=== PATIENT | male | born 1960 | race Caucasian/White ===

== ENCOUNTER → 2016-12-21 | Outpatient (CLI) | payer OTHER ==
--- NOTE | 2016-12-21 10:53 | XR ---
EXAMINATION TYPE: XR chest 2V DATE OF EXAM: 12/21/2016 8:33 AM HISTORY: R05 cough. REFERENCE: Previous study dated 11/24/2009. FINDINGS: The lungs are clear. Pleural spaces are clear. Heart size is upper limits of normal in size . IMPRESSION: NO ACUTE INTRATHORACIC ABNORMALITY.
--- NOTE | 2016-12-21 10:54 | XR ---
EXAMINATION TYPE: XR cervical spine comp DATE OF EXAM ORDERED: 12/21/2016 8:33 AM HISTORY: M54.2 cervicalgia. COMPARISON: None. FINDINGS: Vertebral body height and alignment are normal. Atlantoaxial relationships are normal. There is minimal hypertrophic spondylosis at C3-4 and C4-5. There is mild intervertebral foraminal na rrowing on the left at C3-4 and C4-5. There is mild uncovertebral joint disease at C4-5 and C5-6. IMPRESSION: 1. NO ACUTE OSSEOUS ABNORMALITY. 2. MILD DEGENERATIVE CHANGE. 3. MULTILEVEL INTERVERTEBRAL FORAMINAL NARROWING.
== END | disposition home or self-care (01) ==
LOC: RADXRMAIN 08:12
PROVIDERS: ATTEND Internal Medicine
DX: M99.71 Connective tissue and disc stenosis of intervertebral foramina of cervical region (principal); M47.812 Spondylosis without myelopathy or radiculopathy, cervical region; R05 Cough
CPT/HCPCS: 71020; 72050

== ENCOUNTER → 2017-02-21 | Outpatient (CLI) | payer OTHER ==
--- NOTE | 2017-02-21 20:23 | CONS ---
DATE OF CONSULTATION: 02/21/2017 This patient is a 57-year-old gentleman who has been seen in the sleep center for obstructive sleep apnea-hypopnea syndrome. HISTORY OF PRESENT ILLNESS/SLEEP-WAKE EVALUATION: Patient was diagnosed with severe obstructive sleep apnea-hypopnea syndrome in 2009. At that time apnea-hypopnea index was 62.4 with oxygen desaturation to 70.4%. The patient was treated with CPAP, tried on BiPAP, and also tried on Servo ventilator. He had difficulties tolerating the Servo ventilator at that time. He continues to use his treatment at the present time, but his CPAP unit has some problems; humidifier does not work. His sleep schedule is from 10:30 p.m. to 5 a.m. on working days, and from 11 to 7 on weekends. No problem with falling asleep. No TV in bedroom. He usually sleeps on the side position and wakes up from sleep 2 times with nocturia. Opdyke Sleepiness Scale is 7. The patient's weight has changed since his last titration, from 277 pounds down to 243 pounds. I checked patient's CPAP unit. Patient was able to use it only 12 out of 30 nights for more than 4 hours. CPAP pressure is 8 cm of water. The machine does not have information about apnea-hypopnea index. Past medical history is positive for: 1. Hypertension. 2. Hyperlipidemia. 3. Coronary artery disease. PAST SURGICAL HISTORY: 1. Three stent insertions. 2. Hernia repair. 3. History of polyps in the colon. 4. History of retinal detachment. MEDICATIONS: 1. Metoprolol. 2. Atorvastatin. 3. Enalapril. 4. Hydrochlorothiazide. 5. Nitrostat. SOCIAL HISTORY: Negative for smoking. Alcohol consumption rarely. FAMILY HISTORY: Hypertension, angina, heart problems, hyperlipidemia, arthritis, sleep apnea, snoring, diabetes. REVIEW OF SYSTEMS: Awakenings from sleep, sometimes while using his machine. No recent episodes of chest pain. No fevers. No double vision. No recent chest pain. No shortness of breath. No abdominal pain. No bleeding episodes. No blood in urine. No seizure episodes. PHYSICAL EXAMINATION: Patient in no distress. VITAL SIGNS: BP 156/69, HR 85, RR 16. Height 5 feet 7-1/2 inches. Weight 243. BMI 37.6. Neck 20 inches in circumference. Temperature 98.2. Oxygen saturation at room air 97%. HEENT: PERRLA, EOMI. Evaluation of oropharynx showed tongue protrudes midline; extremely low position of soft palate. NECK: Supple. No JVD. Thyroid is not palpable. LUNGS: Clear to percussion and to auscultation. Good air exchange. No wheezing or rhonchi. HEART: S1, S2 regular. No murmurs, gallops or rubs. ABDOMEN: Obese. EXTREMITIES: No clubbing or cyanosis. VENEREAL DISEASE INVESTIGATOR: Awake, alert, and oriented x3. Cranial nerves 2 to 7 intact. There is no fasciculation or atrophy noted. No focal deficits observed. IMPRESSION: 1. Severe obstructive sleep apnea-hypopnea syndrome. Patient continues to use his CPAP equipment; has some problems with equipment; lost weight of 34 pounds since previous titration. 2. Hypertension. 3. Obesity. 4. Hyperlipidemia. 5. Coronary artery disease, status post 3 stent insertions. 6. Status post hernia repair. PLAN: 1. Repeat CPAP titration for re-evaluation of effective CPAP pressure at the present time. Patient's weight has changed. 2. Losing weight. 3. Sleep hygiene with regular time in bed for at least 8 hours. 4. No driving if feeling any sleepiness. Thank you very much for allowing me to participate in the management of your patient. Sincerely, Alexander Dan MD, PhD, FAASM. Diplomat of [place] [employer], Sleep Medicine Board by [place] [employer], [place] [employer]
== END | disposition home or self-care (01) ==
LOC: SLEEP 13:16
PROVIDERS: ATTEND Internal Medicine
DX: G47.33 Obstructive sleep apnea (adult) (pediatric) (principal); I10 Essential (primary) hypertension; E78.5 Hyperlipidemia, unspecified; I25.10 Atherosclerotic heart disease of native coronary artery without angina pectoris; Z95.5 Presence of coronary angioplasty implant and graft; Z79.899 Other long term (current) drug therapy; E66.9 Obesity, unspecified; Z68.37 Body mass index [BMI] 37.0-37.9, adult

== ENCOUNTER → 2017-05-09 | Outpatient (CLI) | payer OTHER ==
--- NOTE | 2017-05-09 20:45 | PN ---
DATE OF SERVICE: 05/09/2017 This patient is a 57-year-old gentleman who has been followed in the sleep center for treatment of obstructive sleep apnea/hypopnea syndrome. Recently he had a CPAP titration and he came for follow-up visit today with his CPAP unit. He is able to use his CPAP equipment every night without significant problems, except he has some irritation in his nose secondary to the nasal pillows. I checked his CPAP unit. CPAP pressure is 12 cm of water. Patient is using it about 70% of the time more than 4 hours. Average usage is 4.7 hours. Leak is borderline at 32 L/minute, but apnea/hypopnea index is in the full normal range ; only 0.8 for the last month. MEDICATIONS: 1. Metoprolol. 2. Atorvastatin. 3. Enalapril. 4. Hydrochlorothiazide. 5. Nitrostat. 6. Aspirin. During physical exam, patient is a pleasant 57-year-old gentleman in no distress. VITAL SIGNS: BP 118/73, HR 94, RR 16. Weight 242. Temperature 98.2. Oxygen saturation at room air 97%. HEENT: PERRLA. EOMI. Evaluation of oropharynx showed tongue protrudes midline; low position of soft palate. NECK: Supple. No JVD. Thyroid is not palpable. LUNGS: Clear to percussion and to auscultation. Good air exchange. No wheezing or rhonchi. HEART: S1, S2 regular. No murmurs, gallops or rubs. ABDOMEN: Obese. EXTREMITIES: No clubbing or cyanosis. FORGE HAND: Awake, alert and oriented x3. Cranial nerves 2 through 7 are intact. There is no fasciculation or atrophy noted. No focal deficits observed. IMPRESSION: 1. Obstructive sleep apnea/hypopnea syndrome, controlled with CPAP at 12 cm of water. Patient demonstrated good compliance with treatment, benefitting from treatment. 2. Obesity. 3. Hypertension. 4. Hyperlipidemia. 5. Coronary artery disease, status post recent stent insertion. PLAN: 1. Continue treatment with CPAP every night for the whole night with the same level of pressure. 2. We could try a different size of nasal pillows. 3. Patient should use AYR gel to the nostrils with the nasal pillows to prevent any irritation. 4. Losing weight. 5. No driving if feeling any sleepiness. 6. Sleep hygiene with regular time in bed for at least 8 hours. Thank you very much for allowing me to participate in the management of your patient. Sincerely, Alexander Dan. , PhD, FAASM. Diplomat of [place] [employer], Sleep Medicine Board by [place] [employer] [place] [employer] Manager [employer] [facility] [place] Preferable position during sleep on the side. LAVERN
== END | disposition home or self-care (01) ==
LOC: SLEEP 14:41
PROVIDERS: ATTEND Internal Medicine
DX: G47.33 Obstructive sleep apnea (adult) (pediatric) (principal); E66.9 Obesity, unspecified; I10 Essential (primary) hypertension; E78.5 Hyperlipidemia, unspecified; Z79.899 Other long term (current) drug therapy; Z79.82 Long term (current) use of aspirin

== ENCOUNTER → 2018-01-14 | Outpatient (CLI) | payer OTHER ==
--- NOTE | 2018-01-14 16:50 | CONS ---
CONSULTATION REASON FOR CONSULTATION: Sleep apnea. This is a 57-year-old male patient with known history of obstructive sleep apnea who has been followed up by Dr. Dan. I am seeing this patient for the first time for further advice regarding his CPAP machine and pressure adjustments and mask interface. The patient is having difficulties with his CPAP treatment, which is set at a pressure of 12 cm of water. He has a ResMed AutoSet unit and the pressure is fixed at 12. He has no RAMP time. He has the humidity and the climate control in automatic mode. The patient has been having an excessive amount of leak and his compliancy numbers and data have gone down. He has become more symptomatic, and he is coming in for further advice. He goes to bed around 10:30 p.m., wakes up at 5 a.m. in the morning. He is still waking up tired and sleepy during the day, especially on days when he does not use his CPAP machine. He has lost around 10 pounds since his last evaluation and CPAP titration back in 2017. PAST MEDICAL HISTORY: 1. Obstructive sleep apnea. 2. Coronary artery disease with previous coronary stenting. 3. Hypertension. 4. Hyperlipidemia. PAST SURGICAL HISTORY: Cardiac catheterization with stenting and hernia repair. DRUG ALLERGIES: NOT KNOWN. OUTPATIENT MEDICATION LIST: 1. Lisinopril 10 mg 2 tablets a day. 2. Lipitor 40 mg p.o. daily. 3. Hydrochlorothiazide 25 mg p.o. daily. 4. Metoprolol 50 mg p.o. daily. 5. Aspirin 81 mg p.o. daily. SOCIAL HISTORY: The patient is an ex-smoker. No history of alcoholism. No history of IV drugs. FAMILY HISTORY: Noncontributory. Negative for sleep apnea. REVIEW OF SYSTEMS: Twelve-point review of systems was done. No history of insomnia. No choking or gasping sensation in the middle of the night. He has some nocturia. No grinding of the teeth. No sleepwalking. No anxiety or panic attacks. No palpitation or heartburn. No claustrophobia. No sexual dysfunction. No depression. No falling asleep during day-to- day activities or driving. PHYSICAL EXAMINATION: BP is 141/70, pulse 90, respiration 16, temperature 97.3. Weight is 234. Height is 5 feet 7 inches. Neck size is 19-1/2 inches. Saturation 96% on room air. Henderson score is 15. GENERAL APPEARANCE: Calm, comfortable. Head is atraumatic, normocephalic. Neck is short, supple. Crowding of posterior pharynx with Mallampati class IV. LUNGS: Clear to auscultation. Heart sounds are regular rate and rhythm. Normal S1, S2. No S3, S4. No murmurs. ABDOMEN: Soft, nontender. No organomegaly. EXTREMITIES: No edema. No cyanosis or clubbing. SKIN: Negative for any wounds or ulceration. NEUROLOGICAL: Alert and oriented x3. There are no focal neurological deficits. PSYCHIATRY: Negative for anxiety or depression. SKIN: Negative for any wound or ulceration. IMPRESSION: 1. Obstructive sleep apnea, currently on CPAP pressure of 12 cm of water. Treatment has been essentially suboptimal, and the patient's compliancy data has gotten worse as the patient has been having excessive amount of leaks around his nose pillow. He has Urias LT older generation nasal pillows. 2. Obesity with body mass index of 36. 3. Coronary artery disease with previous cardiac catheterization and stenting. 4. Hyperlipidemia. 5. Hypertension. PLAN: Check the patient's CPAP machine. Switch him to an automatic mode with a maximum pressure of 12 and a minimum pressure of 5. Switch the humidity to manual, including the climate control and the humidity setting. His current temperature tubing is 72 and the humidity level is at 4. He was offered an AirFit N20 nose mask. A RAMP time of 15 minutes was added. He will be encouraged to lose weight. We will see him back in followup if these above-mentioned adjustments do not give him adequate results. I think his compliancy and tolerability to CPAP will improve with this current nose mask and these setting changes that were done on the CPAP unit. Encourage weight loss, tight control of cardiovascular risk factors. Will continue to follow. MMODL / IJN: [id number] /
== END | disposition home or self-care (01) ==
LOC: SLEEP 15:36
PROVIDERS: ATTEND Internal Medicine Critical Care Medicine
DX: G47.33 Obstructive sleep apnea (adult) (pediatric) (principal); E66.9 Obesity, unspecified; I25.10 Atherosclerotic heart disease of native coronary artery without angina pectoris; E78.5 Hyperlipidemia, unspecified; I10 Essential (primary) hypertension; Z79.899 Other long term (current) drug therapy; Z99.89 Dependence on other enabling machines and devices; Z98.61 Coronary angioplasty status; Z79.82 Long term (current) use of aspirin; Z68.36 Body mass index [BMI] 36.0-36.9, adult; Z87.891 Personal history of nicotine dependence
CPT/HCPCS: 99211

== ENCOUNTER → 2018-12-16 | Outpatient (CLI) | payer OTHER ==
--- NOTE | 2018-12-16 20:32 | PN ---
PROGRESS NOTE This is an annual check for this 58-year-old male patient coming in for a CPAP compliancy followup and check. The patient has been diagnosed having obstructive sleep apnea. Patient on CPAP. During his last visit he was on a CPAP pressure of 12. I switched him to an APAP, minimum of 5, maximum of 12. I noted that since his last evaluation, the patient has gained a significant amount of weight. Used to weight 234 pounds and currently is up to 262. He is still working for [employer], patient is in maintenance. He also works for [employer] and [employer]. He is quite busy. He has got a lot of stress at home, dealing with a teenager daughter. He has not been able to control his diet and he has gained significant amount of weight. Despite this, he has been very compliant with CPAP unit and treatment has been successful. He is currently using an AirFit N20 medium-size nose mask. His compliancy for more than 4 hours 100%. He is averaging about 6.4 hours of CPAP use per night, average pressure is at 10.8, leak factor 23 L per minute. AHI is down to 2.2 without any central events. No sleep paralysis. No hallucinations. No cataplexy. No restlessness in lower extremities. REVIEW OF SYMPTOMS: His review of systems: A 14-point review of system was done. Positive findings are mentioned above history of present illness. No insomnia. No report no gasping for air. No grinding of the teeth. No anxiety or panic attacks. No palpitations, heartburn or chest pain. No shortness of breath. No aspiration. No sexual dysfunction. No depression at this point in time, no anxiety. No palpitations and no claustrophobia. PHYSICAL EXAMINATION: BP is 140/78, pulse of 78, respirations 16, temp 97.7, saturation 96% on room air and weight is 262. Height is 5 feet 7 inches. General appearance is calm, comfortable. Head is atraumatic, normocephalic. Neck is supple. No JVD. No goiter or neck masses. Mallampati class 4. Lungs clear to auscultation. Heart sounds regular rate and rhythm. Normal S1/S2. No murmurs. Abdomen is soft, nontender. No organomegaly. EXTREMITIES: No edema. No cyanosis or clubbing. NEUROLOGIC: Alert and oriented x3. No focal neurological deficits. Psychiatric negative for anxiety or depression. IMPRESSION: 1. Obstructive sleep apnea currently on APAP. Minimum of 5, maximum of 12 with excellent clinical response and compliance. 2. Obesity with interval weight gain. BMI is up to 40.5, weight up to 262. 3. Coronary artery disease with previous cardiac catheterization and stenting. 4. Hyperlipidemia. 5. Hypertension. PLAN: 1. Encourage weight loss. 2. CPAP compliance data was checked, her numbers are good and the patient continues to be successfully treated. The newest CPAP supplies including an AirFit N20 mask medium size with the heated tubing. 3. Implement good sleep hygiene measures. 4. See me back in a year's time, earlier if needed. Treatment continues to be successful. No major hypersomnia or sleepiness during the day at this point in time. MMBOBBIL / AMIRAN: [id number] /
== END ==
LOC: SLEEP 16:34
PROVIDERS: ATTEND Internal Medicine Critical Care Medicine
DX: G47.33 Obstructive sleep apnea (adult) (pediatric) (principal); E66.9 Obesity, unspecified; I25.10 Atherosclerotic heart disease of native coronary artery without angina pectoris; E78.5 Hyperlipidemia, unspecified; I10 Essential (primary) hypertension; Z95.5 Presence of coronary angioplasty implant and graft; Z68.41 Body mass index [BMI] 40.0-44.9, adult; Z99.89 Dependence on other enabling machines and devices

== ENCOUNTER → 2020-01-27 | Outpatient (CLI) | payer OTHER | END | disposition home or self-care (01) | LOC: LABWHC1 12:33 | PROVIDERS: ATTEND Family Medicine | DX: Z20.828 Contact with and (suspected) exposure to other viral communicable diseases (principal) | CPT/HCPCS: 87635 ==

== ENCOUNTER → 2021-08-25 | Outpatient (CLI) | payer OTHER ==
[~2021-08-25] MED LIST: SODIUM CHLORIDE 0.9% 50 ML IVPB ONE; SODIUM CHLORIDE 0.9% 500 ML 500 ML in EMPTY BAG 1 BAG IV PRN; SOTROVIMAB (EUA) 500 MG in SODIUM CHLORIDE 0.9% 100 ML IVPB ONE
[2021-08-25 14:49] VITALS: TEMP 97.1
[2021-08-25 15:29] VITALS: PULSE 97
[2021-08-25 15:55] VITALS: BP 129/83; RESP 18
== END | disposition home or self-care (01) ==
LOC: PROCWHC3 14:21
PROVIDERS: ATTEND Nurse Practitioner Family
DX: U07.1 COVID-19 (principal)
CPT/HCPCS: 96360; M0247

== ENCOUNTER 2023-04-26 06:20 | Day surgery (SDC) | payer OTHER ==
[~2023-04-26 06:20] MED LIST changes: +LACTATED RINGERS 1,000 ML IV SCH; +LIDOCAINE 1% (10MG/ML) FOR IV START INTRADERMA PRN; -SODIUM CHLORIDE 0.9% 50 ML IVPB ONE; -SODIUM CHLORIDE 0.9% 500 ML 500 ML in EMPTY BAG 1 BAG IV PRN; -SOTROVIMAB (EUA) 500 MG in SODIUM CHLORIDE 0.9% 100 ML IVPB ONE
[2023-04-26 06:52] VITALS: TEMP 97.2
[2023-04-26] MEDS ORDERED: ONDANSETRON 4 MG/2 ML VIAL IVP PRN (07:00)
[2023-04-26] MEDS ORDERED: LIDOCAINE 2% INJ 20 MG/ML (2 ML VIAL) ONE (07:27)
[2023-04-26] MEDS ORDERED: PROPOFOL 10 MG/ML 20 ML VIAL IV ONE (07:27)
--- NOTE | 2023-04-26 07:45 | P.PCN ---
Date of Procedure: 04/26/23 Procedure(s) Performed: BRIEF HISTORY: Patient is a 63-year-old pleasant male scheduled for an elective colonoscopy as a part of screening for colon cancer. PROCEDURE PERFORMED: Colonoscopy with biopsy. PREOPERATIVE DIAGNOSIS: Screening for colon cancer. IV sedation per Anesthesia. PROCEDURE: After informed consent was obtained, the patient, was brought into the endoscopy unit. IV sedation was administered by Anesthesia under continuous monitoring. Digital rectal examination was normal. Initially the Olympus CF-160 flexible video colonoscope was then inserted in the rectum, gradually advanced into the cecum without any difficulty. Careful examination was performed as the scope was gradually being withdrawn. Ileocecal valve and the appendiceal orifice were visualized and appeared normal. Prep was excellent. Mucosa of the cecum, ascending colon appeared normal. In the transverse colon there was a 2 mm and 3 mm sessile polyps removed by cold biopsy. In the descending colon there was another 3 mm polyp removed by cold biopsy. Rest of the, transverse colon, descending colon, sigmoid colon, and rectum appeared normal. Retroflexion was performed in the rectum and no lesions were seen. The patient tolerated the procedure well. IMPRESSION: 2 mm and 3 mm transverse colon polyp status post cold biopsy 3 mm descending colon polyp status post cold biopsy RECOMMENDATIONS: Findings of this examination were discussed with the patient as well as his family. He was advised to follow with the biopsy results. If the biopsy results adenoma he can have a repeat colonoscopy in 5 years..
[2023-04-26 07:59] VITALS: BP 126/75; PULSE 60; RESP 16
== END 2023-04-26 08:23 | disposition home or self-care (01) ==
LOC: ORWHC2ENDO 06:20
PROVIDERS: ATTEND Internal Medicine Gastroenterology
DX: Z12.11 Encounter for screening for malignant neoplasm of colon (principal); D12.3 Benign neoplasm of transverse colon; I10 Essential (primary) hypertension; K21.9 Gastro-esophageal reflux disease without esophagitis; I25.10 Atherosclerotic heart disease of native coronary artery without angina pectoris; E78.5 Hyperlipidemia, unspecified; G47.33 Obstructive sleep apnea (adult) (pediatric); M19.90 Unspecified osteoarthritis, unspecified site; Z79.82 Long term (current) use of aspirin; Z95.5 Presence of coronary angioplasty implant and graft; Z79.899 Other long term (current) drug therapy
CPT/HCPCS: 88305; 45380; J2704; J2001